=== PATIENT | female | born 2000 | race Caucasian/White ===

== ENCOUNTER → 2024-06-18 09:16 | Outpatient (REF) | payer BC, SELFPAY | LOC: RCS 09:16 | PROVIDERS: ATTENDING PHYSICIAN Internal Medicine; FAMILY PHYSICIAN Family Medicine | DX: Q25.1 Coarctation of aorta (principal); Q23.81 Bicuspid aortic valve | CPT/HCPCS: 93306 ==

== ENCOUNTER → 2025-01-28 12:05 | Outpatient (REF) | payer BC, SELFPAY | LOC: PAVMRI 12:05 | PROVIDERS: ATTENDING PHYSICIAN Ophthalmology; FAMILY PHYSICIAN Family Medicine | DX: H47.11 Papilledema associated with increased intracranial pressure (principal); G93.2 Benign intracranial hypertension | CPT/HCPCS: 70553; A9575 ==